=== PATIENT | female | born 1980 | race Caucasian/White ===

== ENCOUNTER 2016-11-15 05:20 | Inpatient (IN) | payer OTHER ==
[~2016-11-15] VITALS: Ht 165.1 cm; Wt 91.6 kg
[~2016-11-15 05:20] MED LIST: IBUPROFEN600 MG PO
[2016-11-15 06:36] LABS: HEMOGLOBIN 11.8 gm/dl (12.3-15.3); RED BLOOD COUNT 4.27 M/UL (4.00-5.10); WHITE BLOOD COUNT 16.1 K/UL (4.5-11.0)
[2016-11-16 03:29] LABS: HEMOGLOBIN 11.5 gm/dl (12.3-15.3)
== END 2016-11-17 18:18 | disposition home or self-care (01) | DRG 774 ==
LOC: OB 05:20
PROVIDERS: Obstetrics & Gynecology; ADMIT Obstetrics & Gynecology
PROC: 10E0XZZ Delivery of Products of Conception, External Approach (ICD-10-PCS; principal; 2016-11-15)
PROC: 10907ZC Drainage of Amniotic Fluid, Therapeutic from Products of Conception, Via Natural or Artificial Opening (ICD-10-PCS; 2016-11-15)
PROC: 3E0234Z Introduction of Serum, Toxoid and Vaccine into Muscle, Percutaneous Approach (ICD-10-PCS; 2016-11-15)
DX: O99.824 Streptococcus B carrier state complicating childbirth (principal); O90.89 Other complications of the puerperium, not elsewhere classified; O16.4 Unspecified maternal hypertension, complicating childbirth; M10.9 Gout, unspecified; O99.334 Smoking (tobacco) complicating childbirth; O99.214 Obesity complicating childbirth; O87.4 Varicose veins of lower extremity in the puerperium; Z3A.40 40 weeks gestation of pregnancy; Z37.0 Single live birth; Z82.49 Family history of ischemic heart disease and other diseases of the circulatory system; Z82.5 Family history of asthma and other chronic lower respiratory diseases; Z80.9 Family history of malignant neoplasm, unspecified; Z84.89 Family history of other specified conditions; Z23 Encounter for immunization
CPT/HCPCS: 36415; 81001; 82800; 85014; 85018; 85025; 90715; J1200; J2405; J2590; J2795; J3010; J7120

== ENCOUNTER → 2017-01-22 | Outpatient (CLI) | payer OTHER | LOC: RAD 10:19 | DX: M54.9 Dorsalgia, unspecified (principal) | CPT/HCPCS: 72070; 72100 ==

== ENCOUNTER → 2020-10-08 | Outpatient (CLI) | payer OTHER | LOC: KOH-I 10-04 09:00 | DX: M25.522 Pain in left elbow (principal); S56.512A Strain of other extensor muscle, fascia and tendon at forearm level, left arm, initial encounter; M77.8 Other enthesopathies, not elsewhere classified | CPT/HCPCS: 73221 ==

== ENCOUNTER → 2021-09-15 | Outpatient (CLI) | payer OTHER | LOC: RAD 17:18 | DX: M25.511 Pain in right shoulder (principal); M54.2 Cervicalgia; M54.50 Low back pain, unspecified | CPT/HCPCS: 72040; 72072; 72100; 73030 ==

== ENCOUNTER → 2022-06-01 | Outpatient (CLI) | payer OTHER | LOC: CT 15:30 | DX: R07.81 Pleurodynia (principal); M79.661 Pain in right lower leg; M79.662 Pain in left lower leg | CPT/HCPCS: 71275; Q9967 ==